=== PATIENT | female | born 1990 | race Two or more races ===

== ENCOUNTER 2019-10-13 02:36 | Emergency (ER) | payer SELFPAY ==
[~2019-10-13] VITALS: Ht 167.6 cm; Wt 73.0 kg
[2019-10-13 02:38] VITALS: BP 122/94
[2019-10-13] MEDS ORDERED: KETOROLAC 30MG/ML VIAL IM ONE (03:00)
== END 2019-10-13 05:10 | disposition home or self-care (01) ==
LOC: ER 02:36
DX: M25.561 Pain in right knee (principal)
CPT/HCPCS: 96372; 99283; J1885

== ENCOUNTER 2020-01-09 00:44 | Emergency (ER) | payer SELFPAY ==
[~2020-01-09] VITALS: Ht 162.6 cm; Wt 65.0 kg
[2020-01-09 01:15] VITALS: BP 134/92
== END 2020-01-09 01:38 | disposition home or self-care (01) ==
LOC: ER 00:44
DX: F10.129 Alcohol abuse with intoxication, unspecified (principal); Y90.9 Presence of alcohol in blood, level not specified; F41.9 Anxiety disorder, unspecified
CPT/HCPCS: 99283

== ENCOUNTER 2021-04-15 15:45 | Emergency (ER) | payer OTHER ==
[~2021-04-15] VITALS: Ht 162.6 cm; Wt 75.0 kg
[2021-04-15] MEDS ORDERED: TETANUS, DIPHTHERIA, PERTUSSIS VAC/PF 0.5ML (>10YR OLD) IM ONE (17:00)
[2021-04-15 19:05] VITALS: BP 127/64
== END 2021-04-15 19:06 ==
LOC: ER 15:45
DX: S01.81XA Laceration without foreign body of other part of head, initial encounter (principal); Y04.0XXA Assault by unarmed brawl or fight, initial encounter; Y93.89 Activity, other specified; Y92.018 Other place in single-family (private) house as the place of occurrence of the external cause
CPT/HCPCS: 12011; 73120; 90715; 99283

== ENCOUNTER 2022-04-18 05:30 | Emergency (ER) | payer SELFPAY | END 2022-04-18 05:44 | disposition left against medical advice (07) | LOC: ER 05:30 | DX: Z53.21 Procedure and treatment not carried out due to patient leaving prior to being seen by health care provider (principal) ==

== ENCOUNTER 2022-10-02 12:22 | Emergency (ER) | payer SELFPAY ==
[~2022-10-02] VITALS: Ht 167.6 cm; Wt 65.8 kg
[2022-10-02 12:38] VITALS: TEMP 98.4; O2SAT 98
[2022-10-02 14:33] LABS: BASOPHILS % 0.6 % (0.0-2.0); EOSINOPHILS % 1.5 % (0.0-5.0); HEMATOCRIT. 34.7 % (36.0-48.0); HEMOGLOBIN. 11.5 g/dL (12.0-16.0); LYMPHOCYTES % 20.6 % (20.0-50.0); MEAN CORPUSCULAR HEMOGLOBIN 31.4 pg (28.0-32.0); MEAN CORPUSCULAR HGB CONC 33.3 g/dL (31.0-37.0); MEAN CORPUSCULAR VOLUME 94.5 fL (81.0-99.0); MEAN PLATELET VOLUME 9.6 fl (7.4-10.4); MONOCYTES % 9.1 % (2.0-8.0); NEUTROPHILS % 68.2 % (40.0-76.0); PLATELET 235 x1000/uL (130-400); RED BLOOD CELL COUNT 3.67 mill/uL (4.2-5.4); RED CELL DISTRIBUTION WIDTH 13.1 % (11.6-14.6); WHITE BLOOD COUNT 9.4 x1000/uL (4.5-11.0)
[2022-10-02 14:39] LABS: CHLORIDE 107 mEq/L (98-107); INDEX HEMOLYSI 1 (1-3); INDEX ICTERIC 1 (1-4); INDEX LIPEMIC 1 (1-3); POTASSIUM 4.2 mEq/L (3.5-5.1); SODIUM 136 mEq/L (136-145)
[2022-10-02 14:43] LABS: HCG SCREEN NEGATIVE
[2022-10-02 14:47] LABS: ALANINE AMINOTRANSFERASE 95 IU/L (13-61); ALBUMIN 3.1 g/dL (3.4-5.0); ASPARTATE AMINOTRANSFERASE 35 IU/L (15-37); BILIRUBIN TOTAL 0.2 mg/dL (0.1-1.0); CALCIUM 8.6 mg/dL (8.5-10.1); CARBON DIOXIDE 27 mEq/L (21-32); CREATININE 0.6 mg/dL (0.6-1.3); GLUCOSE 75 mg/dL (70-105); PROTEIN TOTAL 6.5 g/dL (6.0-8.3); UREA NITROGEN BLOOD 12 mg/dL (7-21)
[2022-10-02 16:03] LABS: CLARITY URINE CLEAR (CLEAR); COLOR URINE YELLOW (YELLOW); GLUCOSE URINE NEGATIVE (NEGATIVE); KETONES URINE NEGATIVE (NEGATIVE); LEUKOCYTE ESTERASE URINE NEGATIVE (NEGATIVE); NITRITE URINE NEGATIVE (NEGATIVE); OCCULT BLOOD URINE NEGATIVE (NEGATIVE); PH URINE 7.5 (4.5-8.0); PROTEIN URINE NEGATIVE (NEGATIVE); SPECIFIC GRAVITY URINE 1.017 (1.005-1.030); UROBILINOGEN URINE 0.2 E.U./dL (0.2-1.0)
[2022-10-02 16:17] VITALS: BP 104/60; PULSE 94; RESP 14
== END 2022-10-02 16:54 | disposition home or self-care (01) ==
LOC: ER 12:22
DX: B34.9 Viral infection, unspecified (principal); Z20.822 Contact with and (suspected) exposure to COVID-19
CPT/HCPCS: 99284; 71046; 87426; 80053; 81003; 81025; 84703; 85025; 36415; C9803

== ENCOUNTER 2023-09-07 16:54 | Emergency (ER) | payer SELFPAY ==
[~2023-09-07] VITALS: Ht 165.1 cm; Wt 65.0 kg
[2023-09-07 16:58] VITALS: O2SAT 98
[2023-09-07] MEDS ORDERED: IBUPROFEN 600MG TABLET PO ONE (18:45)
[2023-09-07] MEDS ORDERED: IBUP-2029 MT (19:30)
[2023-09-07 21:08] VITALS: BP 137/78; PULSE 67; RESP 14; TEMP 98.3
== END 2023-09-07 21:11 | disposition home or self-care (01) ==
LOC: ER 16:58
DX: M25.562 Pain in left knee (principal); M25.561 Pain in right knee
CPT/HCPCS: 73560; 99283

== ENCOUNTER 2023-09-10 14:59 | Emergency (ER) | payer MEDICAID ==
[~2023-09-10] VITALS: Ht 165.1 cm; Wt 85.0 kg
[~2023-09-10 14:59] MED LIST: IBUP-2029 MT
[2023-09-10 15:08] VITALS: BP 115/84; PULSE 100; RESP 18; TEMP 98; O2SAT 98
== END 2023-09-10 16:20 | disposition left against medical advice (07) ==
LOC: ER 14:59
DX: M79.89 Other specified soft tissue disorders (principal); Z53.21 Procedure and treatment not carried out due to patient leaving prior to being seen by health care provider

== ENCOUNTER 2023-09-21 06:32 | Emergency (ER) | payer MEDICAID ==
[~2023-09-21] VITALS: Ht 160 cm; Wt 70.4 kg
[2023-09-21 06:43] VITALS: O2SAT 99
[2023-09-21 07:41] LABS: BASOPHILS % 0.6 % (0.0-2.0); EOSINOPHILS % 0.5 % (0.0-5.0); HEMATOCRIT. 38.8 % (36.0-48.0); HEMOGLOBIN. 12.8 g/dL (12.0-16.0); LYMPHOCYTES % 29.2 % (20.0-50.0); MEAN CORPUSCULAR HEMOGLOBIN 30.3 pg (28.0-32.0); MEAN CORPUSCULAR HGB CONC 32.8 g/dL (31.0-37.0); MEAN CORPUSCULAR VOLUME 92.2 fL (81.0-99.0); MEAN PLATELET VOLUME 10.2 fl (7.4-10.4); MONOCYTES % 13.9 % (2.0-8.0); NEUTROPHILS % 55.8 % (40.0-76.0); PLATELET 230 x1000/uL (130-400); RED BLOOD CELL COUNT 4.21 mill/uL (4.2-5.4); RED CELL DISTRIBUTION WIDTH 13.4 % (11.6-14.6); WHITE BLOOD COUNT 5.8 x1000/uL (4.5-11.0)
[2023-09-21 07:49] LABS: CHLORIDE 105 mEq/L (98-107); POTASSIUM 3.4 mEq/L (3.5-5.1); SODIUM 138 mEq/L (136-145)
[2023-09-21 07:50] LABS: CALCIUM 9.2 mg/dL (8.7-10.4); CARBON DIOXIDE 27 mEq/L (21-32)
[2023-09-21 07:55] LABS: CREATININE 0.8 mg/dL (0.6-1.0); GLUCOSE 98 mg/dL (70-105); UREA NITROGEN BLOOD 15 mg/dL (9-23)
[2023-09-21 07:56] LABS: CLARITY URINE TURBID (CLEAR); COLOR URINE DARK YELLOW (YELLOW); GLUCOSE URINE NEGATIVE (NEGATIVE); KETONES URINE NEGATIVE (NEGATIVE); LEUKOCYTE ESTERASE URINE 2+ (NEGATIVE); NITRITE URINE NEGATIVE (NEGATIVE); OCCULT BLOOD URINE NEGATIVE (NEGATIVE); PH URINE 5.5 (4.5-8.0); PROTEIN URINE 1+ (NEGATIVE); SPECIFIC GRAVITY URINE 1.036 (1.005-1.030)
[2023-09-21 07:57] LABS: ACETAMINOPHEN < 2 ug/mL (10-30)
[2023-09-21 07:59] LABS: ETHANOL BLOOD < 10 mg/dL (<10)
[2023-09-21 08:04] LABS: *AMPHETAMINES SCREEN URINE PRESUMPTIVE POSITIVE (NEGATIVE); *BARBITURATES SCREEN URINE NEGATIVE (NEGATIVE); *BENZODIAZEPINES SCREEN URINE NEGATIVE (NEGATIVE); *COCAINE SCREEN URINE NEGATIVE (NEGATIVE); CANNABINOID URINE SCREEN NEGATIVE (NEGATIVE); ECSTASY MDMA SCREEN URINE CONF.TEST INDICATED (NEGATIVE); HCG SCREEN NEGATIVE; METHADONE URINE SCREEN NEGATIVE (NEGATIVE); OPIATES URINE SCREEN NEGATIVE (NEGATIVE); PHENCYCLIDINE URINE SCREEN NEGATIVE (NEGATIVE)
[2023-09-21 08:22] LABS: SQUAMOUS EPITHELIAL CELL URINE 3+ /lpf (RARE/1+)
[2023-09-21 08:25] LABS: BACTERIA URINE 3+; RBC URINE 0-2 /hpf (0-2)
[2023-09-21] MEDS: LIDOCAINE HCL/PF 1% 10 MG/ML 5ML VIAL INFIL ONE (09:27)
[2023-09-21] MEDS: CEFTRIAXONE SODIUM 1G VIAL IM ONE (09:27)
[2023-09-21 09:30] VITALS: BP 127/86; PULSE 97; RESP 17; TEMP 98.4
[2023-09-21] MEDS ORDERED: NITR-82 MT (12:03)
== END 2023-09-21 12:15 | disposition home or self-care (01) ==
LOC: ER 06:32
DX: F29 Unspecified psychosis not due to a substance or known physiological condition (principal); N39.0 Urinary tract infection, site not specified; U07.1 COVID-19; F16.10 Hallucinogen abuse, uncomplicated; F41.9 Anxiety disorder, unspecified
CPT/HCPCS: 80305; 80048; 81003; 80307; 80329; 80320; 84703; 85025; 87086; 36415; 96372; 99283; 87426; J0696; J3490; G0480